=== PATIENT | male | born 1990 | race Caucasian/White ===

== ENCOUNTER 2023-04-16 05:06 | Day surgery (SDC) | payer BC ==
[2023-04-11 13:46] VITALS: BMI 30.9
[2023-04-16] MEDS ORDERED: BUPIVACAINE HCL/PF 0.25% (2.5MG/ML) 10 ML VIAL ONE (07:21)
[2023-04-16] MEDS ORDERED: BACITRACIN ZINC 15 GM TUBE TOPICAL OINTMENT ONE (07:26)
[2023-04-16] MEDS ORDERED: BUPIVACAINE HCL/PF 0.25% (2.5MG/ML) 10 ML VIAL IJ ONE ×2 (07:39→09:50)
[2023-04-16] MEDS ORDERED: SUCCINYLCHOLINE CHLORIDE 200 MG/10 ML SYRINGE ONE (07:55)
[2023-04-16] MEDS ORDERED: PROPOFOL 40 ML ONE (07:55)
[2023-04-16] MEDS ORDERED: BACITRACIN ZINC 15 GM TUBE TOPICAL OINTMENT TP ONE (08:53)
[2023-04-16] MEDS ORDERED: oxyCODONE HCL 5 MG TABLET PO PRN (08:57)
[2023-04-16] MEDS ORDERED: PROMETHAZINE HCL 25 MG/1 ML VIAL IVPB PRN (08:57)
[2023-04-16] MEDS ORDERED: ONDANSETRON 4 MG/2 ML VIAL IVPUSH PRN (08:57)
[2023-04-16] MEDS ORDERED: LACTATED RINGERS SOLUTION 1,000 ML IV SCH (09:00)
[2023-04-16] MEDS ORDERED: ceFAZolin SODIUM 1 GM VIAL IVPB ONE (09:23)
[2023-04-16] MEDS ORDERED: KETOROLAC TROMETHAMINE 30 MG/1 ML VIAL ONE (09:50)
[2023-04-16] MEDS ORDERED: ceFAZolin SODIUM 1 GM VIAL ONE ×2 (09:50)
[2023-04-16] MEDS ORDERED: DEXAMETHASONE SOD PHOSPHATE 4 MG/1 ML VIAL ONE (09:50)
[2023-04-16 11:22] VITALS: RESP 18
[2023-04-16 13:36] VITALS: BP 136/78; PULSE 60; TEMP 98.1
== END 2023-04-16 12:07 | disposition home or self-care (01) ==
LOC: JASU-SURG 05:06
PROVIDERS: ATTEND Urology
PROC: 0VTTXZZ Resection of Prepuce, External Approach (ICD-10-PCS; principal; 2023-04-16 08:00)
DX: N47.1 Phimosis (principal); N48.1 Balanitis
CPT/HCPCS: 88304-TC; 94760